=== PATIENT | male | born 1965 | race Caucasian/White ===

== ENCOUNTER → 2018-05-20 | Outpatient (CLI) | payer OTHER, MEDICAID ==
--- NOTE | 2018-05-20 13:40 | PCVCIMAG ---
EXAM: LEFT LOWER EXTREMITY ARTERIAL DUPLEX INDICATION: Peripheral Arterial Disease. Leg pain. Nonhealing ulcer left second toe. FINDINGS: Left Leg: Filling defect/nonshadowing plaque distal common femoral artery and at the origins of the superficial femoral artery and profunda femoral artery with increased systolic velocities consistent with high-grade stenosis. Moderate arterial waveforms throughout the remainder of the superficial femoral artery and popliteal artery without additional stenoses seen. The anterior tibial and peroneal arteries are not well identified. The posterior tibial artery has severely blunted arterial flow. IMPRESSION: High-grade stenosis distal left common femoral artery/origins of the left superficial femoral artery profunda femoral artery due to nonshadowing plaque or even embolus as reviewed above. Further evaluation with conventional angiography has been arranged for May 22. LOC:[id number]
== END | disposition home or self-care (01) ==
LOC: PCVCIMAG 10:59
PROVIDERS: ATTEND Nuclear Medicine Nuclear Cardiology
DX: I73.9 Peripheral vascular disease, unspecified (principal); L97.929 Non-pressure chronic ulcer of unspecified part of left lower leg with unspecified severity; E78.00 Pure hypercholesterolemia, unspecified
CPT/HCPCS: 93925; 93926